=== PATIENT | female | born 1945 | race African-American/Black ===

== ENCOUNTER 2016-09-21 04:46 | Day surgery (SDC) | payer MEDICARE, OTHER ==
[~2016-09-21 04:46] MED LIST: ASAB PO; CALAN120 MG PO; FOLIC PO; HUMULIN SC; L40 PO; LIPITOR10 PO; LOTE40 PO; MTX2.5 PO; MULTIPLE VIT PO; NEUR100 PO; NORCO1 TAB PO; P1 PO; PROAIR HFA INH; PROVHFA INH
== END 2016-09-21 07:06 | disposition home or self-care (01) ==
LOC: SDC 04:46
PROVIDERS: Orthopaedic Surgery
PROC: 3E0R3CZ (ICD-10-PCS; 2016-09-21)
PROC: 3E0R33Z Introduction of Anti-inflammatory into Spinal Canal, Percutaneous Approach (ICD-10-PCS; principal; 2016-09-21 07:00)
DX: M54.16 Radiculopathy, lumbar region (principal); M19.90 Unspecified osteoarthritis, unspecified site; M10.9 Gout, unspecified; Z98.890 Other specified postprocedural states; Z96.659 Presence of unspecified artificial knee joint; Z90.89 Acquired absence of other organs; E11.9 Type 2 diabetes mellitus without complications; Z90.710 Acquired absence of both cervix and uterus; E11.22 Type 2 diabetes mellitus with diabetic chronic kidney disease; I12.9 Hypertensive chronic kidney disease with stage 1 through stage 4 chronic kidney disease, or unspecified chronic kidney disease; N18.2 Chronic kidney disease, stage 2 (mild)
CPT/HCPCS: 82962; J1040; J2250; J3010; Q9967